=== PATIENT | male | born 1980 | race Caucasian/White ===

== ENCOUNTER 2023-06-27 10:41 | Day surgery (SDC) | payer OTHER ==
[~2023-06-27 10:41] MED LIST: Midazolam 1 MG/ML 2 ML SDV ONE; Ropivacaine 0.5% 5 MG/ML 30 ML SDV ONE; ceFAZolin 2 GM in Sodium Chloride 0.9% 50 ML IV ONE
[2023-06-27] MEDS ORDERED: Morphine 2 MG/ML SYRINGE IVPUSH PRN (10:49)
[2023-06-27] MEDS ORDERED: Ondansetron 4 MG/2 ML SDV IVPUSH PRN (10:49)
[2023-06-27] MEDS ORDERED: HYDROmorphone 1 MG/ML Syringe IVPUSH PRN (10:49)
[2023-06-27] MEDS ORDERED: Naloxone 0.4 MG/ML SDV IVPUSH PRN (10:49)
[2023-06-27] MEDS ORDERED: Albuterol 0.083% 2.5 MG/3 ML Neb Soln NEB PRN (10:49)
[2023-06-27] MEDS ORDERED: Metoclopramide 10 MG/2 ML SDV IVPUSH PRN (10:49)
[2023-06-27] MEDS ORDERED: droPERidol 5 MG/2 ML SDV IVPUSH PRN (10:49)
[2023-06-27] MEDS ORDERED: fentaNYL 50 MCG/ML SDV IVPUSH PRN (10:49)
[2023-06-27] MEDS: Lactated Ringers 1,000 ML IV SCH (11:00)
[2023-06-27] MEDS ORDERED: Bupivacaine 0.25% 30 ML SDV ONE (11:16)
[2023-06-27] MEDS ORDERED: Propofol 200 MG/20 ML SDV ONE (11:29)
== END 2023-06-27 12:51 | disposition home or self-care (01) ==
LOC: MW.SDS 10:41
PROVIDERS: ATTEND Orthopaedic Surgery
DX: G56.02 Carpal tunnel syndrome, left upper limb (principal); F17.210 Nicotine dependence, cigarettes, uncomplicated; Z79.899 Other long term (current) drug therapy
CPT/HCPCS: 64721; J0665; J2250; J2704; J2795; J7120